=== PATIENT | female | born 1965 | race Two or more races ===

== ENCOUNTER → 2018-08-09 | Day surgery (SDC) | payer BC ==
[~2018-08-09] MED LIST: FERR325T14 PO; IV RINGERS,LACTATED 1000ML 1,000 ML IV SCH; LIDOCAINE 1% PF 2 ML VIAL. ID PRN; LISI10TA2 PO; MIDAZOLAM HCL/PF 2 MG/2 ML VIAL. IV PRN; PROPOFOL 40 ML IV ONE; fentaNYL PF VIAL 100 MCG/2 ML VIAL IV PRN
[2018-08-09 10:06] VITALS: BP 129/77
--- NOTE | 2018-08-12 14:08 | PATHOLOGY ---
[facility] Accession Number: [id number] . 01 Material submitted: . RECTUM POLYP . 01 Clinical history: . Screening . 02 Diagnosis: Colonic mucosa, "rectal polyp biopsy": - Hyperplastic polyp. - There is no evidence of adenomatous change, high-grade dysplasia, or malignancy. . 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 02 Electronically signed: . Frandy Waterman MD, Pathologist NPI- [id number] . 01 Gross description: . Received in formalin labeled "Navarrete, Neida, rectum polyp," is a single segment of beard soft tissue measuring 0.4 cm in maximum dimension. The specimen is entirely submitted in cassette A1. (TSD; 08/09/2018) TOB/TOB . 02 Pathologist provided ICD-10: K62.1 . 02 CPT . 313212 Specimen Comment: A courtesy copy of this report has been sent to Specimen Comment: [phone]. Specimen Comment: Report sent to Performed at: [facility] [address] [facility] [address], [place] [id number] MD Storm Aguirre MD Phone: [phone] Performed at: 02 [facility] [address] [place], [place] [id number] MD Lorenzo Hennessy MD Phone: [phone]
== END | disposition home or self-care (01) ==
LOC: SURG 08:27
PROVIDERS: ATTEND Internal Medicine Gastroenterology
DX: Z12.11 Encounter for screening for malignant neoplasm of colon (principal); K62.1 Rectal polyp; K64.0 First degree hemorrhoids; I10 Essential (primary) hypertension; D64.9 Anemia, unspecified; Z90.49 Acquired absence of other specified parts of digestive tract; Z98.51 Tubal ligation status
CPT/HCPCS: 45380; 88305; J2704